=== PATIENT | female | born 2000 | race Caucasian/White ===

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

== ENCOUNTER 2021-07-22 10:03 | Inpatient (IN) | payer MEDICAID ==
[2021-07-22] MEDS ORDERED: Methylergonovine 0.2 MG/1 ML Amp IM PRN (12:08)
[2021-07-22] MEDS ORDERED: Lactated Ringers 1,000 ML IV ONE (12:08)
[2021-07-22] MEDS ORDERED: Tranexamic Acid 1,000 MG in Sodium Chloride 0.9% 100 ML IV PRN (12:08)
[2021-07-22] MEDS ORDERED: Ondansetron 4 MG/2 ML SDV IVPUSH PRN (12:08)
[2021-07-22] MEDS ORDERED: Carboprost Tromethamine 250 MCG/1 ML Amp IM PRN (12:08)
[2021-07-22] MEDS ORDERED: Acetaminophen 325 MG Tab PO PRN (12:08)
[2021-07-22] MEDS ORDERED: Lidocaine 1% 30 ML SDV INJECT PRN (12:08)
[2021-07-22] MEDS ORDERED: Misoprostol 400 MCG (4 X 100 MCG TAB) RECTAL PRN (12:08)
[2021-07-22] MEDS ORDERED: Nalbuphine 10 MG/1 ML Vial IM ONE ×2 (12:14→16:15)
[2021-07-22] MEDS ORDERED: Oxytocin/Normal Saline 30 UNIT/500 ML BAG IV SCH ×2 (12:15→13:00)
[2021-07-22] MEDS ORDERED: fentaNYL 100 MCG/2 ML SDV IVPUSH PRN ×2 (12:59→14:11)
[2021-07-22] MEDS ORDERED: Nalbuphine 10 MG/1 ML Vial ONE (13:31)
[2021-07-22] MEDS ORDERED: Nalbuphine 10 MG/1 ML Vial IV ONE (14:18)
[2021-07-22] MEDS: Lactated Ringers 1,000 ML IV SCH ×2 (17:30→20:07)
[2021-07-22] MEDS ORDERED: fentaNYL 100 MCG/2 ML SDV ONE (17:40)
[2021-07-22] MEDS ORDERED: fentaNYL 100 MCG/2 ML SDV ITHECAL ONE (17:40)
[2021-07-22] MEDS ORDERED: EPINEPHrine 1 MG/ML SDV ONE ×2 (17:40)
[2021-07-22] MEDS ORDERED: Simethicone 80 MG Tab.Chew PO PRN (20:40)
[2021-07-22] MEDS ORDERED: Oxytocin 10 Units/1 ML SDV IM PRN (20:40)
[2021-07-22] MEDS ORDERED: Benzocaine/Menthol 20%-0.5% Spray 78 GM Cannister TOP PRN (20:40)
[2021-07-22] MEDS ORDERED: ceFAZolin 2 GM in Premix Bag 1 BAG IV ONE (20:44)
[2021-07-22] MEDS: Ibuprofen 800 MG Tab PO PRN (21:51)
[2021-07-23] MEDS ORDERED: Witch Hazel Medicated Pads 100/Jar TOP PRN (05:05)
[2021-07-23] MEDS: Acetaminophen 325 MG Tab PO PRN ×2 (05:06→19:52)
[2021-07-23] MEDS: Sertraline 50 MG Tab PO SCH (08:36)
[2021-07-23] MEDS: Ibuprofen 800 MG Tab PO PRN ×2 (08:37→17:04)
[2021-07-23] MEDS: Docusate Sodium 100 MG Cap PO PRN ×2 (08:37→19:52)
[2021-07-23] MEDS: Prenatal Multivitamin with Calcium/Folic Acid/Iron Tab PO SCH (08:37)
[2021-07-24] MEDS: Ibuprofen 800 MG Tab PO PRN (04:37)
[2021-07-24] MEDS: Prenatal Multivitamin with Calcium/Folic Acid/Iron Tab PO SCH (08:08)
[2021-07-24] MEDS: Sertraline 50 MG Tab PO SCH (08:08)
[2021-07-24] MEDS: Acetaminophen 325 MG Tab PO PRN (08:08)
[2021-07-24] MEDS: Docusate Sodium 100 MG Cap PO PRN (08:08)
[2021-07-24 10:37] VITALS: BP 135/85; PULSE 89
[2021-07-24 12:47] LABS: C.TRACHOMATIS BY TMA Negative (Negative); N.GONORRHOEAE BY TMA Negative (Negative)
== END 2021-07-24 13:00 | disposition home or self-care (01) | DRG 805 ==
LOC: DL.OBCHECK 10:03 → DL.OB 13:32
PROVIDERS: ADMIT Family Medicine; ATTEND Family Medicine
PROC: 10D07Z6 Extraction of Products of Conception, Vacuum, Via Natural or Artificial Opening (ICD-10-PCS; principal; 2021-07-22)
PROC: 0KQM0ZZ Repair Perineum Muscle, Open Approach (ICD-10-PCS; 2021-07-22)
PROC: 10907ZC Drainage of Amniotic Fluid, Therapeutic from Products of Conception, Via Natural or Artificial Opening (ICD-10-PCS; 2021-07-22)
DX: O48.0 Post-term pregnancy (principal); U07.1 COVID-19; Z37.0 Single live birth; O98.52 Other viral diseases complicating childbirth; Z3A.40 40 weeks gestation of pregnancy; O99.02 Anemia complicating childbirth; D64.9 Anemia, unspecified; O99.344 Other mental disorders complicating childbirth; F41.8 Other specified anxiety disorders; O70.1 Second degree perineal laceration during delivery
CPT/HCPCS: 01967; 36415; 51701; 59409; 85027; 87491; 87591; A9270-GY; J0171; J0690; J2300; J2405; J2590; J3010; J7120; U0002

== ENCOUNTER 2022-09-16 07:40 | Inpatient (IN) | payer MEDICAID ==
[2022-09-16] MEDS ORDERED: Acetaminophen 325 MG Tab PO PRN ×2 (08:42→17:53)
[2022-09-16] MEDS ORDERED: Sodium Chloride 0.9% 10 ML Syringe FLUSH PRN (08:42)
[2022-09-16] MEDS ORDERED: Tranexamic Acid 1,000 MG in Sodium Chloride 0.9% 100 ML IV PRN (08:42)
[2022-09-16] MEDS ORDERED: Methylergonovine 0.2 MG/1 ML Amp IM PRN (08:42)
[2022-09-16] MEDS ORDERED: Carboprost Tromethamine 250 MCG/1 ML Amp IM PRN (08:42)
[2022-09-16] MEDS ORDERED: Lidocaine 1% 30 ML SDV INJECT PRN (08:42)
[2022-09-16] MEDS ORDERED: Lactated Ringers 1,000 ML IV ONE (08:42)
[2022-09-16] MEDS ORDERED: Ondansetron 4 MG/2 ML SDV IVPUSH PRN (08:42)
[2022-09-16] MEDS ORDERED: Misoprostol 400 MCG (4 X 100 MCG TAB) RECTAL PRN (08:42)
[2022-09-16] MEDS ORDERED: fentaNYL 100 MCG/2 ML SDV IVPUSH PRN (08:42)
[2022-09-16] MEDS: Lactated Ringers 1,000 ML IV SCH ×2 (08:57→16:39)
[2022-09-16] MEDS: Oxytocin/Normal Saline 30 UNIT/500 ML BAG IV SCH ×2 (08:58→19:41)
[2022-09-16] MEDS ORDERED: Dexmedetomidine 200 MCG/2 ML SDV IV ONE (10:12)
[2022-09-16] MEDS ORDERED: EPINEPHrine 1 MG/ML SDV IV ONE (10:12)
[2022-09-16] MEDS ORDERED: Sodium Bicarbonate 4.2% 2.5 MEQ/5 ML SDV IV ONE (10:12)
[2022-09-16] MEDS ORDERED: Morphine PF 10 MG/10 ML SDV IVPUSH ONE (10:12)
[2022-09-16] MEDS ORDERED: Dexmedetomidine 200 MCG/2 ML SDV ONE (14:53)
[2022-09-16] MEDS ORDERED: Naloxone 2 MG/2 ML Syringe IVPUSH PRN (15:45)
[2022-09-16] MEDS ORDERED: Promethazine 25 MG/ML SDV IM PRN (15:45)
[2022-09-16] MEDS ORDERED: Phenylephrine 1% 10 MG/ML SDV IVPUSH PRN (15:46)
[2022-09-16] MEDS: ePHEDrine 50 MG/ML SDV IVPUSH PRN ×2 (15:55→16:09)
[2022-09-16] MEDS ORDERED: Benzocaine/Menthol 20%-0.5% Spray 78 GM Cannister TOP PRN (17:53)
[2022-09-16] MEDS ORDERED: Simethicone 80 MG Tab.Chew PO PRN (17:53)
[2022-09-16] MEDS ORDERED: Oxytocin 10 Units/1 ML SDV IM PRN (17:53)
[2022-09-17] MEDS: Ibuprofen 800 MG Tab PO PRN ×2 (08:52→19:41)
[2022-09-17] MEDS: Docusate Sodium 100 MG Cap PO PRN (08:52)
[2022-09-17] MEDS: Prenatal Multivitamin with Calcium/Folic Acid/Iron Tab PO SCH (08:52)
[2022-09-17 19:56] VITALS: PULSE 96
[2022-09-18] MEDS: Docusate Sodium 100 MG Cap PO PRN (07:46)
[2022-09-18] MEDS: Ibuprofen 800 MG Tab PO PRN (07:46)
[2022-09-18] MEDS: Prenatal Multivitamin with Calcium/Folic Acid/Iron Tab PO SCH ×2 (07:52→08:33)
[2022-09-18 08:34] VITALS: BP 136/76
== END 2022-09-18 10:13 | disposition home or self-care (01) | DRG 807 ==
LOC: DL.OB 07:40 → OBSVTOIN 17:26
PROVIDERS: ADMIT Family Medicine; ATTEND Family Medicine
PROC: 10907ZC Drainage of Amniotic Fluid, Therapeutic from Products of Conception, Via Natural or Artificial Opening (ICD-10-PCS; principal; 2022-09-16)
PROC: 10E0XZZ Delivery of Products of Conception, External Approach (ICD-10-PCS; principal; 2022-09-16)
DX: O99.02 Anemia complicating childbirth (principal); Z37.0 Single live birth; O99.814 Abnormal glucose complicating childbirth; D64.9 Anemia, unspecified; Z3A.39 39 weeks gestation of pregnancy
CPT/HCPCS: 01967; 36415; 51701; 59409; 85027; A9270-GY; J0171; J2270; J2405; J2550; J2590; J3490; J7120

== ENCOUNTER 2024-02-29 21:50 | Inpatient (IN) | payer MEDICAID ==
[2024-02-29] MEDS ORDERED: fentaNYL 100 MCG/2 ML SDV IVPUSH PRN (23:08)
[2024-02-29] MEDS ORDERED: Acetaminophen 325 MG Tab PO PRN (23:08)
[2024-02-29] MEDS ORDERED: Misoprostol 400 MCG (4 X 100 MCG TAB) RECTAL PRN (23:08)
[2024-02-29] MEDS ORDERED: Carboprost Tromethamine 250 MCG/1 ML Amp IM PRN (23:08)
[2024-02-29] MEDS ORDERED: Sodium Chloride 0.9% 10 ML Syringe FLUSH PRN (23:08)
[2024-02-29] MEDS ORDERED: Tranexamic Acid 1,000 MG in Sodium Chloride 0.9% 100 ML IV PRN (23:08)
[2024-02-29 23:25] LABS: HEMOGLOBIN 9.5 g/dL (12.0-16.0); MEAN CORPUSCULAR HEMOGLOBIN 21.7 pg (27.0-34.0); MEAN CORPUSCULAR HGB CONC 30.6 g/dL (33.0-35.0); MEAN CORPUSCULAR VOLUME 70.9 fL (80-100); RED BLOOD CELL COUNT 4.37 10^6/uL (4.2-5.4); WHITE BLOOD CELL COUNT,WBC 14.1 10^3/uL (5.0-10.0)
[2024-02-29] MEDS: Lactated Ringers 1,000 ML IV SCH (23:34)
[2024-02-29] MEDS: Oxytocin/Normal Saline 30 UNIT/500 ML BAG IV SCH (23:35)
[2024-03-01] MEDS ORDERED: Bupivacaine 0.25% 10 ML SDV ONE (02:35)
[2024-03-01] MEDS ORDERED: fentaNYL 100 MCG/2 ML SDV ONE (02:35)
[2024-03-01] MEDS ORDERED: ePHEDrine 50 MG/ML SDV IVPUSH PRN (02:56)
[2024-03-01] MEDS ORDERED: Phenylephrine HCl In 0.9% NaCl 1 MG/10 ML Syringe IVPUSH PRN (02:56)
[2024-03-01] MEDS ORDERED: Ropivacaine 200 MG in Premix Bag 1 BAG EPIDUR SCH (03:00)
[2024-03-01] MEDS ORDERED: Simethicone 80 MG Tab.Chew PO PRN (04:18)
[2024-03-01] MEDS ORDERED: Oxytocin 10 Units/1 ML SDV IM PRN (04:18)
[2024-03-01] MEDS: Ondansetron 4 MG/2 ML SDV IVPUSH PRN (04:36)
[2024-03-01] MEDS: Methylergonovine 0.2 MG/1 ML Amp IM PRN (04:48)
[2024-03-01] MEDS: Witch Hazel Medicated Pads 100/Jar TOP PRN (05:12)
[2024-03-01] MEDS: Benzocaine/Menthol 20%-0.5% Spray 78 GM Cannister TOP PRN (05:12)
[2024-03-01] MEDS: Lactated Ringers 1,000 ML IV ONE (05:15)
[2024-03-01] MEDS: Ibuprofen 800 MG Tab PO SCH ×2 (05:26→14:17)
[2024-03-01] MEDS: Lidocaine 1% 30 ML SDV INJECT ONE (06:46)
[2024-03-01] MEDS: Docusate Sodium 100 MG Cap PO PRN (09:05)
[2024-03-01] MEDS: Prenatal Multivitamin with Calcium/Folic Acid/Iron Tab PO SCH (09:05)
[2024-03-01] MEDS: Acetaminophen 325 MG Tab PO PRN (12:19)
[2024-03-02 07:18] VITALS: BP 119/73; PULSE 92
[2024-03-02 13:46] LABS: C.TRACHOMATIS BY TMA Negative (Negative); N.GONORRHOEAE BY TMA Negative (Negative); SOURCE GENITAL
== END 2024-03-02 09:27 | disposition home or self-care (01) | DRG 807 ==
LOC: DL.OBCHECK 21:50 → DL.OB 23:09 → OBSVTOIN 03-01 03:53
PROVIDERS: ADMIT Family Medicine; ATTEND Family Medicine
PROC: 10E0XZZ Delivery of Products of Conception, External Approach (ICD-10-PCS; principal; 2024-03-01)
PROC: 3E0R3BZ Introduction of Anesthetic Agent into Spinal Canal, Percutaneous Approach (ICD-10-PCS; 2024-03-01)
PROC: 00HU33Z Insertion of Infusion Device into Spinal Canal, Percutaneous Approach (ICD-10-PCS; 2024-03-01)
DX: O42.02 Full-term premature rupture of membranes, onset of labor within 24 hours of rupture (principal); Z37.0 Single live birth; Z3A.38 38 weeks gestation of pregnancy; O99.02 Anemia complicating childbirth; O71.82 Other specified trauma to perineum and vulva; O62.3 Precipitate labor
CPT/HCPCS: 01967; 36415; 51702; 59409; 84112; 85027; 87491; 87591; A9270-GY; J2210; J2405; J2590; J7120